=== PATIENT | female | born 1955 | race Hispanic/Latino ===

== ENCOUNTER 2017-09-02 08:55 | Observation (INO) | payer OTHER ==
[2017-09-02 08:56] VITALS: BMI 18.3
[2017-09-02] MEDS ORDERED: Albuterol-Ipratrop 3 mg / 0.5 (3 ml) UD IH STA (09:26)
[2017-09-02] MEDS ORDERED: Albuterol-Ipratrop 3 mg / 0.5 (3 ml) UD INH STA (09:26)
[2017-09-02] MEDS ORDERED: Sodium Chloride 0.9% 500 ML IV STA (09:26)
--- NOTE | 2017-09-02 09:33 | ED PDOC ---
HPI: General Adult Time Seen by Provider: 09/02/17 09:12 Chief Complaint (Nursing): Chest Pain Chief Complaint (Provider): Chest Pain, Jaw Pain, Numbness History Per: Patient History/Exam Limitations: no limitations Onset/Duration Of Symptoms: Hrs (x 3) Current Symptoms Are (Timing): Still Present Additional History Per: Family () Additional Complaint(s): Imelda is a 62 y/o female with a history of fibromyalgia, asthma, COPD, and nerve damage who presents to the ED c/o chest pain that radiates to the shoulders, arms, and jaw starting around 6:30 this morning. Ongoing cough that is worse today. No numbness, tingles, weakness. PMD: None Past Medical History Reviewed: Historical Data, Nursing Documentation, Vital Signs Vital Signs: Last Vital Signs Temp 97.6 F 09/02/17 08:57 Pulse 63 09/02/17 08:57 Resp 20 09/02/17 08:57 BP 163/87 H 09/02/17 08:57 Pulse Ox 99 09/02/17 11:12 - Medical History PMH: Arthritis, Asthma, Back Problems (3 herniated discs), Bipolar Disorder, Bronchitis, COPD, Emphysema, Fibromyalgia Denies: Chronic Kidney Disease Other PMH: Nerve Damage - Surgical History Surgical History: Tonsillectomy - Family History Family History: States: Unknown Family Hx - Social History Current smoker - smoking cessation education provided: Yes - Home Medications Home Medications: Ambulatory Orders Medication Instructions Recorded Albuterol HFA [Ventolin HFA 90 2 puff PO BID 08/19/16 mcg/actuation (8 g)] Oxycodone HCl/Acetaminophen 1 each PO Q12 08/19/16 [Percocet 7.5-325 mg Tablet] Ranitidine HCl [Zantac] 300 mg PO ACBL 08/19/16 Theophylline Anhydrous 600 mg PO BID PRN 08/19/16 [Theophylline] Albuterol/Ipratropium [Duoneb 3 3 ml INH RQID #100 neb 08/22/16 mg/0.5 mg (3 ml) UD] Nebulizer and Compressor [Comp-Air 1 each MC Q4H #1 each 08/22/16 Nebulizer System] Promethazine DM [Phenergan DM 5 ml PO Q6 PRN #250 ml 08/22/16 Syrup] guaiFENesin/Dextromethorphan 1 tab PO BID #60 tab 08/22/16 [Mucinex-DM 600-30 mg] predniSONE [Prednisone] 10 mg PO BID #30 tab 08/22/16 - Allergies Allergies/Adverse Reactions: Allergies Allergy/AdvReac Type Severity Reaction Status Date / Time No Known Allergies Allergy Unverified 05/21/13 15:04 Review of Systems ROS Statement: Except As Marked, All Systems Reviewed And Found Negative Cardiovascular: Positive for: Chest Pain Respiratory: Positive for: Cough Musculoskeletal: Positive for: Shoulder Pain, Other (jaw pain) Neurological: Positive for: Numbness (arms). Negative for: Headache, Dizziness Physical Exam - Reviewed Nursing Documentation Reviewed: Yes Vital Signs Reviewed: Yes - Physical Exam Appears: Positive for: Well, Non-toxic, No Acute Distress Head Exam: Positive for: ATRAUMATIC, NORMAL INSPECTION, NORMOCEPHALIC Skin: Positive for: Normal Color, Warm, DRY Neck: Positive for: Normal, Painless ROM, Supple Cardiovascular/Chest: Positive for: Regular Rate, Rhythm. Negative for: Murmur Respiratory: Positive for: Decreased Breath Sounds (b/l) Gastrointestinal/Abdominal: Positive for: Normal Exam, Bowel Sounds, Soft. Negative for: Tenderness Back: Positive for: Normal Inspection Extremity: Positive for: Tenderness (mild shoulder, chest). Negative for: Normal ROM, Pedal Edema, Deformity, Swelling Neurologic/Psych: Positive for: Alert, statistical developer II-XII, Oriented. Negative for: Motor/Sensory Deficits - Laboratory Results Result Diagrams: 09/02/17 09:36 09/02/17 09:36 - ECG ECG: Positive for: Viewed By Ms ECG Rhythm: Positive for: Nonspecific Changes O2 Sat by Pulse Oximetry: 99 (RA) Pulse Ox Interpretation: Normal - Radiology X-Ray: Read By Radiologist X-Ray Interpretation: No Acute Disease - Progress ED Course And Treament: 1135: BUN 29. Likely dehydration and needs chest pain ACS workup. Stable. Pain free. Spoke with Dr. Gonzalez. Will admit tele obs. Medical Decision Making Medical Decision Making: Time: 9:25 Initial Impression: Chest Pain Initial Plan: --CMP --Troponin --CBC --PTT --Prothrombin Time --Chest XR --Aspirin --Duoneb x 2 --Solu-Medrol --Flu Swab Flu Swab --Negative Scribe Attestation: Documented by Garrick Bedolla, acting as a scribe for Ian Faulkner MD Provider Scribe Attestation: All medical record entries made by the Scribe were at my direction and personally dictated by me. I have reviewed the chart and agree that the record accurately reflects my personal performance of the history, physical exam, medical decision making, and the department course for this patient. I have also personally directed, reviewed, and agree with the discharge instructions and disposition. Disposition - Clinical Impression Clinical Impression: Chest pain - Patient ED Disposition Is Patient to be Admitted: Yes Counseled Patient/Family Regarding: Studies Performed, Diagnosis - Disposition Disposition Time: 11:38 Condition: FAIR - Pt Status Changed To: Hospital Disposition Of: Observation - POA Present On Arrival: None Core Measure Indicators: Chest Pain
[2017-09-02] MEDS ORDERED: Albuterol-Ipratrop 3 mg / 0.5 (3 ml) UD ONE ×3 (09:41→20:05)
[2017-09-02 09:51] LABS: BASO # 0.1 K/uL (0.0-0.2); BASO % 1.8 % (0.0-2.0); EOS # 0.2 K/uL (0.0-0.7); EOS % 3.1 % (0.0-4.0); HEMOGLOBIN 15.4 g/dL (12.0-16.0); LYMPH # 2.1 K/uL (1.0-4.3); LYMPH % 36.3 % (20.0-40.0); MEAN CELL VOLUME 95.9 fl (81.0-99.0); MEAN CORPUSCULAR HEMOGLOBIN 31.8 pg (27.0-31.0); MEAN CORPUSCULAR HGB CONC 33.1 g/dL (33.0-37.0); MEAN PLATELET VOLUME 9.7 fl (7.2-11.7); MONO # 0.8 K/uL (0.0-0.8); MONO % 13.8 % (0.0-10.0); NEUT # 2.6 K/uL (1.8-7.0); NRBC % 0.1 % (0.0-0.0); RBC 4.85 Mil/uL (3.80-5.20); RED CELL DISTRIBUTION WIDTH 13.3 % (11.5-14.5); WHITE BLOOD COUNT 5.7 K/uL (4.8-10.8)
[2017-09-02 09:57] LABS: ALB/GLOB RATIO 1.2 (1.0-2.1); ALBUMIN 3.6 g/dL (3.5-5.0); CALCIUM 9.2 mg/dL (8.4-10.2); GFR AFRICAN-AMERICAN > 60; GFR NON-AFRICAN AMERICAN > 60
[2017-09-02 10:05] LABS: INR 0.9 (0.9-1.2); PARTIAL THROMBOPLASTIN TIME 32.1 Seconds (25.6-37.1); PROTHROMBIN TIME 10.1 Seconds (9.8-13.1)
--- NOTE | 2017-09-02 10:11 | RAD ---
HISTORY: dyspnea COMPARISON: Chest radiograph dated 08/19/2016. FINDINGS: LUNGS: No active pulmonary disease. PLEURA: No significant pleural effusion identified, no pneumothorax apparent. CARDIOVASCULAR: Atherosclerotic aortic calcifications. Cardiomediastinal silhouette within normal. OSSEOUS STRUCTURES: Unchanged. VISUALIZED UPPER ABDOMEN: Normal. OTHER FINDINGS: None. IMPRESSION: No active disease.
[2017-09-02 10:18] LABS: ALT/SGPT 44 U/L (9-52); AST/SGOT 42 U/L (14-36); BLOOD UREA NITROGEN 29 mg/dl (7-17)
[2017-09-02] MEDS ORDERED: Albuterol HFA 90 mcg/actuation (8 g) IH PRN (12:29)
[2017-09-02] MEDS ORDERED: THEOPHYLLINE ANHYDROUS PO PRN (12:29)
[2017-09-02] MEDS ORDERED: Oxycodone/Acetaminophen 5/325 mg Tab ONE (14:29)
[2017-09-02] MEDS: Oxycodone/Acetaminophen 5/325 mg Tab PO PRN ×2 (14:29→22:00)
--- NOTE | 2017-09-02 16:08 | CP.PCM.HP ---
History of Present Illness - History of Present Illness History of Present Illness: This is a 62 year old female with past medical history of fibromyalgia, asthma, COPD (still smoking 4-5 cigarettes a day), who presented to the ED with the complaint of chest pain waking her up from sleep around 4 AM, constant, feels like a pressure, with pain radiating to the right jaw and to her shoulders. Associated with diaphoresis. C/o dry nonproductive cough. Also has history of bipolar disorder, bronchitis, and chronic back pain with 3 herniated discs. In the ED, her vitals remained stable. EKG shows no acute changes and her troponin is normal. Given her chest pain, she is to be placed on telemetry/observation overnight to rule out ACS. Denies fever, chills, sob, weakness, nausea, vomiting , or diarrhea. Of note, the patient states that she has run out of her medications and has been noncompliant. PMD: NONE Present on Admission - Present on Admission Any Indicators Present on Admission: No Review of Systems - Review of Systems Review of Systems: A 12 point review of systems was conducted and was found to be negative. Past Patient History - Infectious Disease Hx of Infectious Diseases: None - Past Medical History & Family History Past Medical History?: Yes Past Family History: Reviewed and not pertinent - Past Social History Smoking Status: Light Smoker < 10 Cigarettes Daily - CARDIAC Hx Cardiac Disorders: Yes - PULMONARY Hx Asthma: Yes Hx Bronchitis: Yes Hx Chronic Obstructive Pulmonary Disease (COPD): Yes Hx Emphysema: Yes - NEUROLOGICAL Hx Neurological Disorder: No - HEENT Hx HEENT Problems: No - RENAL Hx Chronic Kidney Disease: No - ENDOCRINE/METABOLIC Hx Endocrine Disorders: No - HEMATOLOGICAL/ONCOLOGICAL Hx Blood Disorders: Yes Hx Hepatitis C: Yes - INTEGUMENTARY Hx Dermatological Problems: No - MUSCULOSKELETAL/RHEUMATOLOGICAL Hx Arthritis: Yes - GASTROINTESTINAL Hx Gastrointestinal Disorders: Yes Hx Colitis: Yes - GENITOURINARY/GYNECOLOGICAL Hx Genitourinary Disorders: No - PSYCHIATRIC Hx Bipolar Disorder: Yes - SURGICAL HISTORY Hx Tonsillectomy: Yes - ANESTHESIA Hx Anesthesia: Yes Hx Anesthesia Reactions: No Meds Allergies/Adverse Reactions: Allergies Allergy/AdvReac Type Severity Reaction Status Date / Time No Known Allergies Allergy Unverified 05/21/13 15:04 Physical Exam - Additional Findings Additional findings: Physical exam: Constitutional- cooperative, awake, alert Head- NCAT, PERRL Eye- PERRL, EOMI ENT- normal exam, MMM. Neck- normal inspection, supple, no JVD Respiratory- CTAB, no wheezes rales rhonchi Cardiovascular- RRR, +S1, +S2 no MRG GI/Abdominal- normal bowel sounds, soft, no mass, no hsm Skin- warm, dry Extremities Exam- normal capillary refill, normal inspection Neurological Exam- alert, awake, oriented Psych- normal mood, normal affect Results - Vital Signs Recent Vital Signs: Last Vital Signs Temp 97.6 F 09/02/17 08:57 Pulse 69 09/02/17 11:48 Resp 16 09/02/17 11:48 BP 134/65 09/02/17 11:48 Pulse Ox 97 09/02/17 11:48 - Labs Result Diagrams: 09/02/17 09:36 09/02/17 09:36 Labs: Laboratory Results - last 24 hr 09/02/17 09/02/17 09/02/17 09:36 09:36 09:36 WBC 5.7 RBC 4.85 Hgb 15.4 Hct 46.6 MCV 95.9 MCH 31.8 H MCHC 33.1 RDW 13.3 Plt Count 190 MPV 9.7 Neut % (Auto) 45.0 L Lymph % (Auto) 36.3 [place] % (Auto) 13.8 H Eos % (Auto) 3.1 Baso % (Auto) 1.8 Neut # (Auto) 2.6 Lymph # (Auto) 2.1 [place] # (Auto) 0.8 Eos # (Auto) 0.2 Baso # (Auto) 0.1 PT INR APTT Sodium 142 Potassium 4.2 Chloride 109 H Carbon Dioxide 24 Anion Gap 13 BUN 29 H Creatinine 0.9 Est GFR ( Amer) > 60 Est GFR (Non-Af Amer) > 60 Random Glucose 98 Calcium 9.2 Total Bilirubin 0.5 AST 42 H ALT 44 Alkaline Phosphatase 126 Troponin I < 0.0120 Total Protein 6.7 Albumin 3.6 Globulin 3.1 Albumin/Globulin Ratio 1.2 Influenza Typ A,B (EIA) Negative for flu a/b 09/02/17 09:36 WBC RBC Hgb Hct MCV MCH MCHC RDW Plt Count MPV Neut % (Auto) Lymph % (Auto) [place] % (Auto) Eos % (Auto) Baso % (Auto) Neut # (Auto) Lymph # (Auto) [place] # (Auto) Eos # (Auto) Baso # (Auto) PT 10.1 INR 0.9 APTT 32.1 Sodium Potassium Chloride Carbon Dioxide Anion Gap BUN Creatinine Est GFR ( Amer) Est GFR (Non-Af Amer) Random Glucose Calcium Total Bilirubin AST ALT Alkaline Phosphatase Troponin I Total Protein Albumin Globulin Albumin/Globulin Ratio Influenza Typ A,B (EIA) Assessment & Plan - Assessment and Plan (Free Text) Plan: ASSESSMENT/PLAN This is a 62 year old female with past medical history of fibromyalgia, asthma, COPD (still smoking 4-5 cigarettes a day), who presented to the ED with the complaint of chest pain waking her up from sleep around 4 AM, constant, feels like a pressure, with pain radiating to the right jaw and to her shoulders. Associated with diaphoresis. C/o dry nonproductive cough. Also has history of bipolar disorder, bronchitis, and chronic back pain with 3 herniated discs. In the ED, her vitals remained stable. EKG shows no acute changes and her troponin is normal. Given her chest pain, she is to be placed on telemetry/observation overnight to rule out ACS 1) Chest pain, evaluate for acute coronary syndrome - Place on tele/obs - Serial troponins - EKG in AM - Nitrostat PRN for chest pain - Consider cardiology consultation if troponin elevation or EKG changes - ASA 81 mg po daily 2) Emphysema history, chronic - Duonebs q 6 hours ATC - Albuterol PRN - No need for further steroids at this time- at respiratory baseline - CXR: No acute cardiopulmonary disease. No pneumonia - Continue Theophylline 3) Fibromyalgia - Percocet 1 tab q 6 hours PRN for severe pain - Tylenol for mild pain - Patient states that lyrica/neurontin do not help her pain 4) Dehydration NS at 75 cc/hour until midnight check BMP in AM 5) DVT prophylaxis - Heparin sq - Disposition: Discharge in AM if workup is negative
[2017-09-02] MEDS ORDERED: Sodium Chloride 0.9% 1,000 ML IV SCH (16:15)
[2017-09-02] MEDS: Albuterol-Ipratrop 3 mg / 0.5 (3 ml) UD INH SCH (16:18)
[2017-09-02] MEDS ORDERED: RANITIDINE HCL 300 MG PO SCH (17:00)
[2017-09-03 06:17] LABS: HEMOGLOBIN 13.9 g/dL (12.0-16.0); MEAN CELL VOLUME 96.2 fl (81.0-99.0); MEAN CORPUSCULAR HEMOGLOBIN 31.3 pg (27.0-31.0); MEAN CORPUSCULAR HGB CONC 32.5 g/dL (33.0-37.0); RBC 4.44 Mil/uL (3.80-5.20); RED CELL DISTRIBUTION WIDTH 13.1 % (11.5-14.5); WHITE BLOOD COUNT 11.4 K/uL (4.8-10.8)
[2017-09-03] MEDS: Oxycodone/Acetaminophen 5/325 mg Tab PO PRN (06:22)
[2017-09-03 06:26] LABS: HDL CHOLESTEROL 65 MG/DL (30-70)
[2017-09-03 06:29] LABS: BLOOD UREA NITROGEN 28 mg/dl (7-17); CALCIUM 9.2 mg/dL (8.4-10.2); GFR AFRICAN-AMERICAN > 60; GFR NON-AFRICAN AMERICAN 56
[2017-09-03] MEDS ORDERED: Influenza Vaccine 18yr & older 0.5 ML/45 MCG SYR IM ONE (06:30)
[2017-09-03 06:37] LABS: LDL CHOLESTEROL 43 mg/dL (0-129)
[2017-09-03] MEDS: Albuterol-Ipratrop 3 mg / 0.5 (3 ml) UD INH SCH ×2 (07:57→11:29)
[2017-09-03 08:30] VITALS: TEMP 98
--- NOTE | 2017-09-03 10:04 | CP.PCM.DIS ---
<Ari Ha - Last Filed: 09/03/17 12:50> Provider - Provider Date of Admission: 09/02/17 11:39 Attending physician: Godfrey Gonzalez DO Primary care physician: None Time Spent in preparation of Discharge (in minutes): 30 Diagnosis - Discharge Diagnosis (1) Chest pain Status: Acute Onset Date: ~09/02/17 Comment: Troponin x3 negative. CXR with NO acute pulmonary disease. EKG was unremarlakble and showed NO chage from previous one in 2017. Pt instructed to establish care with a PMD for further F/U as outpatient. (2) Emphysema of lung Status: Chronic Comment: Pt counseled on complete smoking cessation. To follow up with PMD within 1 week. C/w current medications. Cough medication, such as Robitussin or Phenergan, can be ontained OTC. Hospital Course - Lab Results Lab Results: Most Recent Lab Values WBC 11.4 K/uL (4.8-10.8) H D 09/03/17 05:31 RBC 4.44 Mil/uL (3.80-5.20) 09/03/17 05:31 Hgb 13.9 g/dL (12.0-16.0) 09/03/17 05:31 Hct 42.7 % (34.0-47.0) 09/03/17 05:31 MCV 96.2 fl (81.0-99.0) 09/03/17 05:31 MCH 31.3 pg (27.0-31.0) H 09/03/17 05:31 MCHC 32.5 g/dL (33.0-37.0) L 09/03/17 05:31 RDW 13.1 % (11.5-14.5) 09/03/17 05:31 Plt Count 186 K/uL (130-400) 09/03/17 05:31 MPV 9.7 fl (7.2-11.7) 09/02/17 09:36 Neut % (Auto) 45.0 % (50.0-75.0) L 09/02/17 09:36 Lymph % (Auto) 36.3 % (20.0-40.0) 09/02/17 09:36 [place] % (Auto) 13.8 % (0.0-10.0) H 09/02/17 09:36 Eos % (Auto) 3.1 % (0.0-4.0) 09/02/17 09:36 Baso % (Auto) 1.8 % (0.0-2.0) 09/02/17 09:36 Neut # (Auto) 2.6 K/uL (1.8-7.0) 09/02/17 09:36 Lymph # (Auto) 2.1 K/uL (1.0-4.3) 09/02/17 09:36 [place] # (Auto) 0.8 K/uL (0.0-0.8) 09/02/17 09:36 Eos # (Auto) 0.2 K/uL (0.0-0.7) 09/02/17 09:36 Baso # (Auto) 0.1 K/uL (0.0-0.2) 09/02/17 09:36 PT 10.1 Seconds (9.8-13.1) 09/02/17 09:36 INR 0.9 (0.9-1.2) 09/02/17 09:36 APTT 32.1 Seconds (25.6-37.1) 09/02/17 09:36 Sodium 142 mmol/l (132-148) 09/03/17 05:31 Potassium 4.2 MMOL/L (3.6-5.0) 09/03/17 05:31 Chloride 109 mmol/L (98-107) H 09/03/17 05:31 Carbon Dioxide 25 mmol/L (22-30) 09/03/17 05:31 Anion Gap 12 (10-20) 09/03/17 05:31 BUN 28 mg/dl (7-17) H 09/03/17 05:31 Creatinine 1.0 mg/dl (0.7-1.2) 09/03/17 05:31 Est GFR ( Amer) > 60 09/03/17 05:31 Est GFR (Non-Af Amer) 56 09/03/17 05:31 Random Glucose 112 mg/dL (65-105) H 09/03/17 05:31 Calcium 9.2 mg/dL (8.4-10.2) 09/03/17 05:31 Total Bilirubin 0.5 mg/dl (0.2-1.3) 09/02/17 09:36 AST 42 U/L (14-36) H 09/02/17 09:36 ALT 44 U/L (9-52) 09/02/17 09:36 Alkaline Phosphatase 126 U/L (38-126) 09/02/17 09:36 Troponin I < 0.0120 ng/mL (0.00-0.120) 09/03/17 08:04 Total Protein 6.7 G/DL (6.3-8.2) 09/02/17 09:36 Albumin 3.6 g/dL (3.5-5.0) 09/02/17 09:36 Globulin 3.1 gm/dL (2.2-3.9) 09/02/17 09:36 Albumin/Globulin Ratio 1.2 (1.0-2.1) 09/02/17 09:36 Triglycerides 50 mg/DL (0-149) 09/03/17 05:31 Cholesterol 126 mg/dL (0-199) 09/03/17 05:31 LDL Cholesterol Direct 43 mg/dL (0-129) 09/03/17 05:31 HDL Cholesterol 65 MG/DL (30-70) 09/03/17 05:31 Influenza Typ A,B (EIA) Negative for flu a/b (NEGATIVE) 09/02/17 09:36 - Hospital Course Hospital Course: 62 y/o F with a PMHx of COPD-emphysema and bipolar disorder admitted for observation of chest apin and to r/o ACS. Pt remained afebrile, tolerating PO, chest pain currently 4/10 and improving. After 3 negative troponin levels, EKG with NO suspicious changes, and unremarkable CXR, pt is to be discharged. Pt instructed to establish PMD care and f/u. Medication refill as per pt currently does not have a PMD (Last PMD retired): Percocet 5 day supply, Flexeril, Albuterol inhaler and Theophylline. Pt instructed to establish primary care as soon as possible. - Date & Time of H&P Date of H&P: 09/02/17 Time of H&P: 16:06 Discharge Exam - Head Exam Head Exam: ATRAUMATIC, NORMAL INSPECTION, NORMOCEPHALIC - Eye Exam Eye Exam: EOMI, Normal appearance - ENT Exam ENT Exam: Mucous Membranes Moist - Neck Exam Neck exam: Full Rom - Respiratory Exam Respiratory Exam: NORMAL BREATHING PATTERN, UNREMARKABLE - Cardiovascular Exam Cardiovascular Exam: REGULAR RHYTHM, +S1, +S2 - GI/Abdominal Exam GI & Abdominal Exam: Normal Bowel Sounds, Soft. absent: Tenderness - Neurological Exam Neurological exam: Alert, Oriented x3 Discharge Plan - Discharge Medications Prescriptions: Albuterol HFA [Ventolin HFA 90 mcg/actuation (8 g)] 2 puff PO BID #1 inhaler Cyclobenzaprine [Cyclobenzaprine HCl] 10 mg PO HS #10 tab Oxycodone HCl/Acetaminophen [Percocet 7.5-325 mg Tablet] 1 each PO Q12 #10 tablet Theophylline Anhydrous [Theophylline] 600 mg PO BID PRN #30 tab.er.24h PRN Reason: Wheezing - Follow Up Plan Condition: FAIR Disposition: HOME/ ROUTINE Instructions: Chest Pain (DC) Additional Instructions: - Please F/U with PMD within 1 week. - Continue with medication as prescribed. - Pt can obtain cough medication such as Phenergan over the counter. <Sony Colon D - Last Filed: 09/03/17 14:58> Provider - Provider Date of Admission: 09/02/17 11:39 Attending physician: Godfrey Gonzalez DO Hospital Course - Lab Results Lab Results: Most Recent Lab Values WBC 11.4 K/uL (4.8-10.8) H D 09/03/17 05:31 RBC 4.44 Mil/uL (3.80-5.20) 09/03/17 05:31 Hgb 13.9 g/dL (12.0-16.0) 09/03/17 05:31 Hct 42.7 % (34.0-47.0) 09/03/17 05:31 MCV 96.2 fl (81.0-99.0) 09/03/17 05:31 MCH 31.3 pg (27.0-31.0) H 09/03/17 05:31 MCHC 32.5 g/dL (33.0-37.0) L 09/03/17 05:31 RDW 13.1 % (11.5-14.5) 09/03/17 05:31 Plt Count 186 K/uL (130-400) 09/03/17 05:31 MPV 9.7 fl (7.2-11.7) 09/02/17 09:36 Neut % (Auto) 45.0 % (50.0-75.0) L 09/02/17 09:36 Lymph % (Auto) 36.3 % (20.0-40.0) 09/02/17 09:36 [place] % (Auto) 13.8 % (0.0-10.0) H 09/02/17 09:36 Eos % (Auto) 3.1 % (0.0-4.0) 09/02/17 09:36 Baso % (Auto) 1.8 % (0.0-2.0) 09/02/17 09:36 Neut # (Auto) 2.6 K/uL (1.8-7.0) 09/02/17 09:36 Lymph # (Auto) 2.1 K/uL (1.0-4.3) 09/02/17 09:36 [place] # (Auto) 0.8 K/uL (0.0-0.8) 09/02/17 09:36 Eos # (Auto) 0.2 K/uL (0.0-0.7) 09/02/17 09:36 Baso # (Auto) 0.1 K/uL (0.0-0.2) 09/02/17 09:36 PT 10.1 Seconds (9.8-13.1) 09/02/17 09:36 INR 0.9 (0.9-1.2) 09/02/17 09:36 APTT 32.1 Seconds (25.6-37.1) 09/02/17 09:36 Sodium 142 mmol/l (132-148) 09/03/17 05:31 Potassium 4.2 MMOL/L (3.6-5.0) 09/03/17 05:31 Chloride 109 mmol/L (98-107) H 09/03/17 05:31 Carbon Dioxide 25 mmol/L (22-30) 09/03/17 05:31 Anion Gap 12 (10-20) 09/03/17 05:31 BUN 28 mg/dl (7-17) H 09/03/17 05:31 Creatinine 1.0 mg/dl (0.7-1.2) 09/03/17 05:31 Est GFR ( Amer) > 60 09/03/17 05:31 Est GFR (Non-Af Amer) 56 09/03/17 05:31 Random Glucose 112 mg/dL (65-105) H 09/03/17 05:31 Calcium 9.2 mg/dL (8.4-10.2) 09/03/17 05:31 Total Bilirubin 0.5 mg/dl (0.2-1.3) 09/02/17 09:36 AST 42 U/L (14-36) H 09/02/17 09:36 ALT 44 U/L (9-52) 09/02/17 09:36 Alkaline Phosphatase 126 U/L (38-126) 09/02/17 09:36 Troponin I < 0.0120 ng/mL (0.00-0.120) 09/03/17 08:04 Total Protein 6.7 G/DL (6.3-8.2) 09/02/17 09:36 Albumin 3.6 g/dL (3.5-5.0) 09/02/17 09:36 Globulin 3.1 gm/dL (2.2-3.9) 09/02/17 09:36 Albumin/Globulin Ratio 1.2 (1.0-2.1) 09/02/17 09:36 Triglycerides 50 mg/DL (0-149) 09/03/17 05:31 Cholesterol 126 mg/dL (0-199) 09/03/17 05:31 LDL Cholesterol Direct 43 mg/dL (0-129) 09/03/17 05:31 HDL Cholesterol 65 MG/DL (30-70) 09/03/17 05:31 Influenza Typ A,B (EIA) Negative for flu a/b (NEGATIVE) 09/02/17 09:36
[2017-09-03] MEDS ORDERED: guaiFENesin DM 100 mg-10 mg/5 ml UD PO PRN (10:41)
[2017-09-03 16:53] VITALS: BP 124/67; PULSE 61; RESP 20; O2SAT 96
--- NOTE | 2017-09-04 17:04 | CARD ---
APPROVED REPORT EKG Measurement Heart [id number] <Conclusion> Sinus bradycardia Possible Left atrial enlargement Rightward axis Left ventricular hypertrophy Anterior infarct, age undetermined Abnormal ECG
== END 2017-09-03 18:15 | disposition home or self-care (01) ==
LOC: H.ER 08:55 → H.ERHOLD 11:39 → H.TEL 20:27
PROVIDERS: ADMIT Internal Medicine; ATTEND Internal Medicine
DX: R07.89 Other chest pain (principal); J43.9 Emphysema, unspecified; M79.7 Fibromyalgia; Z79.82 Long term (current) use of aspirin; Z91.19 Patient's noncompliance with other medical treatment and regimen; Z86.19 Personal history of other infectious and parasitic diseases; M54.9 Dorsalgia, unspecified; G89.29 Other chronic pain; J40 Bronchitis, not specified as acute or chronic; K52.9 Noninfective gastroenteritis and colitis, unspecified; M19.90 Unspecified osteoarthritis, unspecified site; R61 Generalized hyperhidrosis; R68.84 Jaw pain; E86.0 Dehydration; F17.200 Nicotine dependence, unspecified, uncomplicated; F31.9 Bipolar disorder, unspecified; Z23 Encounter for immunization
CPT/HCPCS: 36415; 71045; 80048; 80053; 80061; 84484; 85025; 85027; 85610; 85730; 87804; 90471; 94640; 96374; 99285; G0378; J1170; J1644; J2930; J7040; Q2035

== ENCOUNTER 2018-06-18 22:38 | Emergency (ER) | payer OTHER ==
[2018-06-18 22:38] VITALS: BMI 18.3
[2018-06-18 22:47] VITALS: O2SAT 97
[2018-06-18] MEDS ORDERED: Oxycodone/Acetaminophen 5/325 mg Tab PO ONE (23:18)
--- NOTE | 2018-06-18 23:25 | ED PDOC ---
Upper Extremity Pain/Injury Time Seen by Provider: 06/18/18 22:54 Chief Complaint (Nursing): Upper Extremity Problem/Injury Chief Complaint (Provider): fall, left shoulder pain History Per: Patient History/Exam Limitations: no limitations Onset/Duration Of Symptoms: Hrs (1) Current Symptoms Are (Timing): Still Present Additional Complaint(s): 62 y/o female history of arthritis, emphysema brought in by EMS for evaluation of left shoulder pain status-post fall. Patient states she had arthritic hips and a bad left knee, uses a cane for ambulation, and legs gave out going down the steps in her home. PAtient states she hit front of head and landed on left shoulder. Patient reports pain to left shoulder and head currently. Denies LOC, dizziness, nausea/vomiting, extremity numbness/weakness, neck/back pain. Patient states left ankle and right wrist hurt earlier but not now. Past Medical History Reviewed: Historical Data, Nursing Documentation, Vital Signs Vital Signs: Last Vital Signs Temp 98.2 F 06/18/18 22:44 Pulse 84 06/18/18 22:44 Resp 17 06/18/18 22:44 BP Pulse Ox 97 06/18/18 22:44 - Medical History PMH: Arthritis, Asthma, Back Problems (3 herniated discs), Bipolar Disorder, Bronchitis, COPD, Emphysema, Fibromyalgia Denies: Chronic Kidney Disease - Surgical History Surgical History: Tonsillectomy - Family History Family History: States: Unknown Family Hx - Home Medications Home Medications: Ambulatory Orders Medication Instructions Recorded Oxycodone HCl/Acetaminophen 1 each PO Q12 08/19/16 [Percocet 7.5-325 mg Tablet] Ranitidine HCl [Zantac] 300 mg PO BID 08/19/16 Albuterol/Ipratropium [Duoneb 3 3 ml INH RQID #100 neb 08/22/16 mg/0.5 mg (3 ml) UD] Nebulizer and Compressor [Comp-Air 1 each MC Q4H #1 each 08/22/16 Nebulizer System] Albuterol HFA [Ventolin HFA 90 2 puff PO BID #1 inhaler 09/03/17 mcg/actuation (8 g)] Aspirin [Aspirin Chewable] 81 mg PO DAILY chew 09/03/17 Cyclobenzaprine [Cyclobenzaprine 10 mg PO HS #10 tab 09/03/17 HCl] Oxycodone HCl/Acetaminophen 1 each PO Q12 #10 tablet 09/03/17 [Percocet 7.5-325 mg Tablet] Theophylline Anhydrous 600 mg PO BID PRN #30 tab.er.24h 09/03/17 [Theophylline] guaiFENesin/Dextromethorphan 5 ml PO Q4 PRN udc 09/03/17 [Robitussin DM] oxyCODONE/Acetaminophen [Percocet 1 ea PO Q6 PRN #5 tab 06/19/18 5/325 mg Tab] - Allergies Allergies/Adverse Reactions: Allergies Allergy/AdvReac Type Severity Reaction Status Date / Time No Known Allergies Allergy Unverified 05/21/13 15:04 Review of Systems ROS Statement: Except As Marked, All Systems Reviewed And Found Negative Musculoskeletal: Positive for: Shoulder Pain (left) Neurological: Positive for: Headache Physical Exam - Reviewed Nursing Documentation Reviewed: Yes Vital Signs Reviewed: Yes - Physical Exam Appears: Positive for: Well, Non-toxic, No Acute Distress Head Exam: Positive for: ATRAUMATIC, NORMAL INSPECTION, NORMOCEPHALIC Skin: Positive for: Normal Color Eye Exam: Positive for: Normal appearance ENT: Positive for: Normal ENT Inspection Cardiovascular/Chest: Positive for: Regular Rate, Rhythm Respiratory: Positive for: Normal Breath Sounds Pulses-Radial (L): 2+ Pulses-Radial (R): 2+ Extremity: Negative for: Normal ROM (unable to move left upper extremity due to pain left shoulder. Tender to palpate anterior left shoulder. Distal NV/motor intact) Neurologic/Psych: Positive for: Alert, Oriented (x3) - ECG O2 Sat by Pulse Oximetry: 97 - Progress ED Course And Treament: -left shoulder xray -CT head -percocet PO CT scan of the head. CLINICAL HISTORY: Fall. TECHNIQUE: Multiple axial CT images were obtained through the brain without IV contrast material. COMMENTS: There is normal configuration of sella turcica. There are no intra or extra- axial collections. There is no mass effect or midline shift. There is no evidence of hematoma formation. No hydrocephalus is present. The ventricles are symmetrical. No abnormal calcifications are present. There is diffuse age-appropriate cerebellar and cerebral atrophy with proportionally dilated ventricles and cortical sulci. There are bilateral periventricular and subcortical white matter hypolucencies compatible with mild chronic microvascular disease. Otherwise, no significant focal abnormalities are seen either in the posterior f darshan or supratentorial compartment. IMPRESSION: 1. Age-appropriate cerebellar and cerebral atrophy. 2. Mild chronic microvascular disease. 3. No evidence of acute intracranial pathology. Left shoulder, 2 views. Indication: Fell. Pain. Findings: Mild osteopenia. There are changes of degenerative joint disease. No fracture or dislocation is seen. No aggressive bone lesion is noted. Impression: No radiographic evidence of an acute pathology On re-eval, patient states she is feeling better. Arm sling applied Patient educated on findings, discharged with rx Percocet Advised follow up PMD/ortho RICE Return precautions given Disposition - Clinical Impression Clinical Impression: Injury of left shoulder, Head injury - Patient ED Disposition Is Patient to be Admitted: No Counseled Patient/Family Regarding: Studies Performed, Diagnosis, Need For Followup - Disposition Referrals: Allyson Ramirez MD [Staff Provider] - Disposition: Routine/Home Disposition Time: 01:37 Condition: IMPROVED Prescriptions: oxyCODONE/Acetaminophen [Percocet 5/325 mg Tab] 1 ea PO Q6 PRN #5 tab PRN Reason: Pain, Severe (8-10) Instructions: Shoulder Sprain, Minor Head Injury Forms: [facility] [facility] (Bhutanese)
[2018-06-19 02:33] VITALS: BP 125/71; PULSE 82; RESP 18; TEMP 98.1
--- NOTE | 2018-06-19 08:27 | CT ---
Date of service: 06/18/2018 PROCEDURE: CT HEAD WITHOUT CONTRAST. HISTORY: fall, head injury COMPARISON: None available. TECHNIQUE: Axial computed tomography images were obtained through the head/brain without intravenous contrast. Radiation dose: Total exam DLP = 643.94 mGy-cm. This CT exam was performed using one or more of the following dose reduction techniques: Automated exposure control, adjustment of the mA and/or kV according to patient size, and/or use of iterative reconstruction technique. FINDINGS: HEMORRHAGE: No intracranial hemorrhage. BRAIN: The prior 10 x 5 mm oval hypodensity, possibly CSF like, in the central katherine on current series 4, image 17 is similar to prior series 8, image 14. No associated mass effect or edema here is appreciated Mild cerebellar and cerebral atrophy noted similar in appearance. The mild periventricular white matter faint hypodensities are compatible with microvascular ischemic changes and appear similar. VENTRICLES: Unremarkable. No hydrocephalus. CALVARIUM: Unremarkable. PARANASAL SINUSES: Unremarkable as visualized. No significant inflammatory changes. MASTOID AIR CELLS: Unremarkable as visualized. No inflammatory changes. OTHER FINDINGS: Cavernous and the supraclinoid internal carotid arterial vascular calcifications IMPRESSION: No intracranial hemorrhage or mass effect. No calvarial fracture appreciated The pontine 10 x 5 mm oval CSF like hypodensity, possibly CSF like is unchanged with the 08/19/2016 study. No associated mass effect or edema appreciated. Its clinical significance, if any unknown. Consider, neurology consult. This is a discordance or omission with the preliminary [facility] report
--- NOTE | 2018-06-19 08:48 | RAD ---
Date of service: 06/18/2018 PROCEDURE: Radiographs of the Left Shoulder HISTORY: fall, pain COMPARISON: No prior. FINDINGS: BONES: Osteopenia. No fracture appreciated. JOINTS: Glenohumeral and acromioclavicular osteoarthritis. SOFT TISSUES: Normal. OTHER FINDINGS: There is presence of aortic atherosclerotic calcification on x-ray. IMPRESSION: No fracture or dislocation. Osteopenia and arthrosis Concordant results (preliminary interpretation) provided by [facility].
== END 2018-06-19 01:41 | disposition home or self-care (01) ==
LOC: H.ER 22:38
DX: S09.90XA Unspecified injury of head, initial encounter (principal); S49.92XA Unspecified injury of left shoulder and upper arm, initial encounter; W10.9XXA Fall (on) (from) unspecified stairs and steps, initial encounter; Y92.89 Other specified places as the place of occurrence of the external cause